=== PATIENT | female | born 1940 | race Caucasian/White ===

== ENCOUNTER 2018-12-12 02:44 | Emergency (ER) | payer MEDICARE, OTHER ==
[~2018-12-12] VITALS: Ht 167.6 cm; Wt 99.8 kg
[2018-12-12] MEDS ORDERED: cloNIDine HCL 0.1 MG TAB PO ONE (03:45)
[2018-12-12] MEDS ORDERED: ONDANSETRON HCL 4 MG/2 ML VIAL IV ONE (04:30)
[2018-12-12] MEDS ORDERED: MORPHINE SULFATE 4 MG/ML SYR/VIAL IV ONE (04:30)
[2018-12-12 04:37] LABS: Basophils # (auto) 0.1 uL; Basophils % (auto) 0.9 % (0.0-2.0); Eosinophils # (auto) 0.1 uL; Hematocrit 41.1 % (36.0-46.0); Hemoglobin 13.3 g/dL (12.2-16.2); Lymphocytes # (auto) 2.2 uL; Lymphocytes % (auto) 22.5 % (10.0-50.0); Mean Corpuscular Hemoglobin 28.4 pg (28.0-32.0); Mean Corpuscular Hgb Conc. 32.3 g/dL (32.0-36.0); Mean Corpuscular Volume 87.9 fL (80.0-100.0); Monocytes # (auto) 0.8 uL; Monocytes % (auto) 7.7 % (0.0-12.0); Neutrophils # (auto) 6.7 uL; Neutrophils % (auto) 67.9 % (37.0-80.0); Platelet Count (auto) 266 10^3/uL (140-450); Red Blood Cells 4.68 10^6/uL (4.0-5.20); White Blood Cell 9.9 10^3/uL (4.4-10.8)
[2018-12-12 05:00] LABS: Albumin 4.2 g/dL (3.4-5.0); BUN/Creatinine Ratio 14.7; Calcium 10.2 mg/dL (8.5-10.1); Potassium 4.1 mmol/L (3.5-5.1)
[2018-12-12 05:04] LABS: Bilirubin, Total 0.6 mg/dL (0.2-1.0); Total Protein 8.1 g/dL (6.4-8.2)
[2018-12-12] MEDS ORDERED: IOHEXOL 300 MG/ML 100ML BOTTLE IJ ONE (07:01)
[2018-12-12 10:00] VITALS: BP 143/74
[2018-12-12 10:23] LABS: Urine Bacteria FEW /hpf (None Seen); Urine Blood Negative /uL (Negative); Urine Specific Gravity 1.039 (1.001-1.035); Urine WBC 8 /hpf (0 - 5)
== END 2018-12-12 11:02 | disposition home or self-care (01) ==
LOC: ER 02:47
DX: S76.012A Strain of muscle, fascia and tendon of left hip, initial encounter (principal); S80.02XA Contusion of left knee, initial encounter; R10.9 Unspecified abdominal pain; R11.2 Nausea with vomiting, unspecified; E11.9 Type 2 diabetes mellitus without complications; I10 Essential (primary) hypertension; Z90.49 Acquired absence of other specified parts of digestive tract; Z90.710 Acquired absence of both cervix and uterus; W01.0XXA Fall on same level from slipping, tripping and stumbling without subsequent striking against object, initial encounter; Y93.89 Activity, other specified; Y99.8 Other external cause status; Y92.89 Other specified places as the place of occurrence of the external cause
CPT/HCPCS: 36415; 73070; 73502; 73560; 73610; 74177; 80053; 81001; 82150; 83605; 83690; 85025; 93005; 96374; 96375; 99284; J2270; J2405; J7030; Q9967

== ENCOUNTER 2018-12-12 19:13 | Emergency (ER) | payer MEDICARE ==
[~2018-12-12] VITALS: Ht 167.6 cm; Wt 99.8 kg
[2018-12-12 19:27] VITALS: BP 190/77
[2018-12-12] MEDS ORDERED: cloNIDine HCL 0.1 MG TAB ONE (19:35)
[2018-12-12] MEDS ORDERED: cloNIDine HCL 0.1 MG TAB PO ONE (19:45)
== END 2018-12-12 20:40 | disposition left against medical advice (07) ==
LOC: ER 19:13
DX: R10.84 Generalized abdominal pain (principal); R11.2 Nausea with vomiting, unspecified; Z53.21 Procedure and treatment not carried out due to patient leaving prior to being seen by health care provider
CPT/HCPCS: 93005

== ENCOUNTER 2023-01-30 03:07 | Inpatient (IN) | payer MEDICARE, MEDICAID ==
[~2023-01-30] VITALS: Ht 167.6 cm; Wt 80.5 kg
[2023-01-30 04:00] VITALS: PULSE 98; RESP 22; O2SAT 95
[2023-01-30] MEDS ORDERED: SODIUM CHLORIDE 0.9% 1,000 ML IV ONE (04:00)
[2023-01-30] MEDS ORDERED: IPRATROPIUM BROM 0.5 MG/2.5ML INH SOL NEB ONE (04:15)
[2023-01-30] MEDS ORDERED: ALBUTEROL MEDNEB 2.5 mg/3ml NEB NEB ONE (04:15)
[2023-01-30] MEDS ORDERED: SODIUM CHLORIDE 0.9% 1,700 ML IV ONE (04:30)
[2023-01-30] MEDS ORDERED: ALBUMIN 25% 100 ML IV ONE (04:30)
[2023-01-30 04:31] LABS: Basophils # (auto) 0 10 ^3/uL (0-0.2); Eosinophils # (auto) 0 10 ^3/uL (0-0.8); Eosinophils % (auto) 0.5 % (0.0-7.0); Hematocrit 33.6 % (36.0-46.0); Hemoglobin 11.1 g/dL (12.2-16.2); Lymphocytes # (auto) 0.2 10 ^3/uL (0.4-5.4); Mean Corpuscular Hemoglobin 29.8 pg (28.0-32.0); Mean Corpuscular Hgb Conc. 33.1 g/dL (32.0-36.0); Mean Corpuscular Volume 90.3 fL (80.0-100.0); Monocytes # (auto) 0.5 10 ^3/uL (0-1.3); Neutrophils # (auto) 5.8 10 ^3/uL (1.6-8.6); Neutrophils % (auto) 89.5 % (37.0-80.0); Nucleated Red Blood Cells % 0.2 %; Red Blood Cells 3.72 10^6/uL (4.0-5.20); Red Cell Distribution Width 14.5 % (11.8-14.3); White Blood Cell 6.5 10^3/uL (4.4-10.8)
[2023-01-30 04:40] LABS: INR 1.13 (0.9-1.15); Partial Thromboplastin Time 30.3 SEC (24.5-34.5); Prothrombin Time 11.8 sec (9.3-11.8)
[2023-01-30 04:51] LABS: Alanine Aminotransferase 22 U/L (7-40); Albumin 3.6 g/dL (3.2-4.8); Alkaline Phosphatase 47 U/L (46-116); Anion Gap 6 (5-15); Aspartate Aminotransferase 25 U/L (13-40); BUN/Creatinine Ratio 21.7 (10.0-20.0); Bilirubin, Total 0.3 mg/dL (0.2-1.0); Blood Urea Nitrogen 33 mg/dL (9-23); Carbon Dioxide 23 mmol/L (20-30); Chloride 111 mmol/L (98-107); Glucose 120 mg/dL (74-106); Magnesium 1.4 mg/dL (1.6-2.6); Potassium 4.3 mmol/L (3.5-5.1); Sodium 140 mmol/L (136-145); Total Protein 5.8 g/dL (5.7-8.2)
[2023-01-30 05:34] LABS: COVID19 ANTIGEN SOFIA FIA NEGATIVE (NEGATIVE)
[2023-01-30 07:20] VITALS: O2SAT 96
[2023-01-30] MEDS ORDERED: NITROGLYCERIN 0.4 MG SL TAB SL ONE (10:00)
[2023-01-30 10:07] LABS: Basophils # (auto) 0 10 ^3/uL (0-0.2); Basophils % (auto) 0.1 % (0.0-2.0); Eosinophils # (auto) 0.1 10 ^3/uL (0-0.8); Eosinophils % (auto) 1.1 % (0.0-7.0); Hematocrit 31.6 % (36.0-46.0); Hemoglobin 10.2 g/dL (12.2-16.2); Lymphocytes # (auto) 0.3 10 ^3/uL (0.4-5.4); Lymphocytes % (auto) 5.1 % (10.0-50.0); Mean Corpuscular Hemoglobin 29.1 pg (28.0-32.0); Mean Corpuscular Hgb Conc. 32.3 g/dL (32.0-36.0); Mean Corpuscular Volume 90.1 fL (80.0-100.0); Monocytes # (auto) 0.5 10 ^3/uL (0-1.3); Neutrophils # (auto) 5.4 10 ^3/uL (1.6-8.6); Neutrophils % (auto) 85.7 % (37.0-80.0); Nucleated Red Blood Cells % 0.1 %; Red Cell Distribution Width 14.3 % (11.8-14.3); White Blood Cell 6.2 10^3/uL (4.4-10.8)
[2023-01-30 10:10] LABS: Alanine Aminotransferase 21 U/L (7-40); Albumin 3.7 g/dL (3.2-4.8); Alkaline Phosphatase 43 U/L (46-116); Anion Gap 7 (5-15); Aspartate Aminotransferase 22 U/L (13-40); BUN/Creatinine Ratio 23.9 (10.0-20.0); Blood Urea Nitrogen 38 mg/dL (9-23); Calcium 9.3 mg/dL (8.5-10.1); Carbon Dioxide 23 mmol/L (20-30); Chloride 111 mmol/L (98-107); Glucose 99 mg/dL (74-106); Potassium 4.7 mmol/L (3.5-5.1); Sodium 141 mmol/L (136-145)
[2023-01-30 10:11] LABS: Bilirubin, Total 0.3 mg/dL (0.2-1.0); Total Protein 5.6 g/dL (5.7-8.2)
[2023-01-30 10:20] LABS: INR 1.14 (0.9-1.15); Partial Thromboplastin Time 31.6 SEC (24.5-34.5); Prothrombin Time 11.9 sec (9.3-11.8)
[2023-01-30 11:31] LABS: Rapid Influenza A Negative (Negative); Rapid Influenza B Negative (Negative)
[2023-01-30] MEDS ORDERED: PIPERACILLIN-TAZOB 3.375GM 100 ML IV ONE (13:00)
[2023-01-30] MEDS ORDERED: ATOR40TA52 PO (13:23)
[2023-01-30] MEDS ORDERED: METF-370 PO (13:23)
[2023-01-30] MEDS ORDERED: MET500T PO (13:23)
[2023-01-30] MEDS ORDERED: SUCR1TAB PO (13:23)
[2023-01-30] MEDS ORDERED: PATI1POW PO (13:23)
[2023-01-30] MEDS ORDERED: ALPR0.255 PO (13:23)
[2023-01-30] MEDS ORDERED: CITA-77 PO (13:23)
[2023-01-30] MEDS ORDERED: ALLO100T PO (13:23)
[2023-01-30] MEDS ORDERED: GABA-1250 PO (13:23)
[2023-01-30] MEDS ORDERED: ALPR0.5T8 PO (13:23)
[2023-01-30] MEDS ORDERED: ATEN100T PO (13:23)
[2023-01-30] MEDS ORDERED: LISI40TA16 PO (13:23)
[2023-01-30] MEDS ORDERED: DEXTROSE (50%) 50ML SYRG IV PRN (13:30)
[2023-01-30] MEDS ORDERED: ALBUTEROL MEDNEB 2.5 mg/3ml NEB NEB PRN (13:30)
[2023-01-30] MEDS: AZITHROMYCIN 500MG/ 250ML 250 ML IV ONE (13:30)
[2023-01-30] MEDS ORDERED: MORPHINE SULFATE INJ 2 MG/ml SYRG IV PRN (13:30)
[2023-01-30] MEDS ORDERED: NITROGLYCERIN 0.4 MG SL TAB SL PRN (13:30)
[2023-01-30] MEDS ORDERED: cefTRIAXone 1GM/50ML D5W 50 ML IV ONE (13:30)
[2023-01-30] MEDS: SODIUM CHLORIDE 0.9% 1,000 ML IV SCH (13:39)
[2023-01-30] MEDS: IPRATROPIUM BROM 0.5 MG/2.5ML INH SOL NEB SCH ×3 (14:00→22:00)
[2023-01-30] MEDS: ALBUTEROL MEDNEB 2.5 mg/3ml NEB NEB SCH ×3 (14:00→22:00)
[2023-01-30] MEDS: ONDANSETRON HCL 4 MG/2 ML VIAL IV PRN (14:21)
[2023-01-30] MEDS: GABAPENTIN 300 MG CAP PO SCH ×2 (14:21→23:21)
[2023-01-30] MEDS ORDERED: ONDANSETRON HCL 4 MG/2 ML VIAL ONE (14:21)
[2023-01-30 15:01] LABS: Urine Bacteria FEW /hpf (None Seen); Urine Blood Negative /uL (Negative); Urine Clarity HAZY (Clear); Urine Color Yellow (Yellow); Urine Hyaline Cast FEW /lpf (0 - 2); Urine Mucus FEW (None Seen); Urine Protein, UAD 1+ (Negative); Urine Specific Gravity 1.016 (1.001-1.035); Urine Urobilinogen Normal (Negative); Urine WBC 152 /hpf (0 - 5); Urine WBC Clumps PRESENT /hpf (None Seen); Urine pH 5.5 (5.0-8.0)
[2023-01-30] MEDS: InsuLIN REG 1unit/0.01ml Soln (100units/ml) SC SCH ×2 (17:00→22:00)
[2023-01-30] MEDS: ACCU-CHEK COMFORT CURVE STRIP VI SCH ×2 (17:22→22:00)
[2023-01-30 18:05] VITALS: PULSE 66; RESP 18; O2SAT 100
[2023-01-30] MEDS: SUCRALFATE 1 GM TAB PO SCH ×2 (18:19→23:21)
[2023-01-30 18:28] VITALS: BP 95/57; PULSE 66; RESP 18; TEMP 102; O2SAT 100
[2023-01-30 20:00] VITALS: PULSE 76; RESP 18; O2SAT 98
[2023-01-31] VITALS (9 sets, daily range): BP systolic 99–142; BP diastolic 46–78; PULSE 62–140; RESP 16–20; TEMP 97.6–98.6; O2SAT 94–99
[2023-01-31] MEDS: IPRATROPIUM BROM 0.5 MG/2.5ML INH SOL NEB SCH ×6 (02:00→22:00)
[2023-01-31] MEDS: ALBUTEROL MEDNEB 2.5 mg/3ml NEB NEB SCH ×4 (02:00→14:29)
[2023-01-31] MEDS: SODIUM CHLORIDE 0.9% 1,000 ML IV SCH ×2 (02:56→16:31)
[2023-01-31] MEDS ORDERED: ALBUMIN 5% 250 ML IV ONE (05:00)
[2023-01-31] MEDS: SUCRALFATE 1 GM TAB PO SCH ×4 (05:36→22:25)
[2023-01-31] MEDS: GABAPENTIN 300 MG CAP PO SCH ×3 (05:36→22:26)
[2023-01-31 06:15] LABS: Alanine Aminotransferase 17 U/L (7-40); Albumin 3.4 g/dL (3.2-4.8); Alkaline Phosphatase 37 U/L (46-116); Anion Gap 5 (5-15); Aspartate Aminotransferase 21 U/L (13-40); BUN/Creatinine Ratio 18.1 (10.0-20.0); Calcium 8.3 mg/dL (8.7-10.4); Carbon Dioxide 22 mmol/L (20-30); Chloride 115 mmol/L (98-107); Glucose 84 mg/dL (74-106); Potassium 4.5 mmol/L (3.5-5.1); Sodium 142 mmol/L (136-145)
[2023-01-31 06:16] LABS: Bilirubin, Total 0.2 mg/dL (0.2-1.0); Total Protein 5.4 g/dL (5.7-8.2)
[2023-01-31 06:33] LABS: Blood Urea Nitrogen 26 mg/dL (9-23)
[2023-01-31 06:49] LABS: Basophils # (auto) 0 10 ^3/uL (0-0.2); Basophils % (auto) 0.1 % (0.0-2.0); Eosinophils # (auto) 0.1 10 ^3/uL (0-0.8); Eosinophils % (auto) 1.4 % (0.0-7.0); Hematocrit 30.5 % (36.0-46.0); Hemoglobin 10.1 g/dL (12.2-16.2); Lymphocytes # (auto) 1.9 10 ^3/uL (0.4-5.4); Lymphocytes % (auto) 34.7 % (10.0-50.0); Mean Corpuscular Hemoglobin 30.2 pg (28.0-32.0); Mean Corpuscular Hgb Conc. 33.1 g/dL (32.0-36.0); Mean Corpuscular Volume 91.5 fL (80.0-100.0); Monocytes # (auto) 0.5 10 ^3/uL (0-1.3); Monocytes % (auto) 10.2 % (0.0-12.0); Neutrophils # (auto) 2.9 10 ^3/uL (1.6-8.6); Neutrophils % (auto) 53.6 % (37.0-80.0); Nucleated Red Blood Cells % 0.1 %; Red Blood Cells 3.33 10^6/uL (4.0-5.20); White Blood Cell 5.3 10^3/uL (4.4-10.8)
[2023-01-31] MEDS: ACCU-CHEK COMFORT CURVE STRIP VI SCH ×4 (06:51→22:00)
[2023-01-31] MEDS: InsuLIN REG 1unit/0.01ml Soln (100units/ml) SC SCH ×4 (06:51→22:00)
[2023-01-31] MEDS: ALLOPURINOL 100 MG TAB PO SCH (09:43)
[2023-01-31] MEDS: ATORVASTATIN 20 MG TAB PO SCH (09:43)
[2023-01-31] MEDS: cefTRIAXone 1GM/50ML D5W 50 ML IV SCH (09:43)
[2023-01-31] MEDS: CITALOPRAM HYDROBR 20 MG TAB PO SCH (09:43)
[2023-01-31] MEDS: PATIROMER SORBITEX CALCIUM PO SCH (10:00)
[2023-01-31] MEDS: AZITHROMYCIN 500MG/ 250ML 250 ML IV SCH (11:04)
[2023-01-31] MEDS: ACETAMINOPHEN 325 MG TAB PO PRN ×2 (12:35→23:14)
[2023-01-31] MEDS: ENOXAPARIN SOD 30 MG/0.3 ML SYRINGE SC SCH (13:48)
[2023-01-31] MEDS: ALBUTEROL SULF 2.5 MG/0.5ML(0.5%) NEB SOLN NEB SCH ×2 (18:00→22:00)
[2023-01-31] MEDS ORDERED: ALBUTEROL SULF 2.5 MG/0.5ML(0.5%) NEB SOLN NEB PRN (18:00)
[2023-02-01] VITALS (8 sets, daily range): BP systolic 130–155; BP diastolic 52–86; PULSE 63–87; RESP 17–19; TEMP 97.4–98.3; O2SAT 91–100
[2023-02-01] MEDS: ALBUTEROL SULF 2.5 MG/0.5ML(0.5%) NEB SOLN NEB SCH ×3 (02:00→10:00)
[2023-02-01] MEDS: IPRATROPIUM BROM 0.5 MG/2.5ML INH SOL NEB SCH ×3 (02:00→10:00)
[2023-02-01] MEDS: SODIUM CHLORIDE 0.9% 1,000 ML IV SCH (05:35)
[2023-02-01] MEDS: SUCRALFATE 1 GM TAB PO SCH ×4 (06:09→20:44)
[2023-02-01] MEDS: GABAPENTIN 300 MG CAP PO SCH ×3 (06:09→20:44)
[2023-02-01] MEDS: InsuLIN REG 1unit/0.01ml Soln (100units/ml) SC SCH ×4 (06:14→20:45)
[2023-02-01] MEDS: ACCU-CHEK COMFORT CURVE STRIP VI SCH ×4 (06:15→20:45)
[2023-02-01 07:02] LABS: Basophils # (auto) 0 10 ^3/uL (0-0.2); Basophils % (auto) 0.2 % (0.0-2.0); Eosinophils # (auto) 0.1 10 ^3/uL (0-0.8); Hematocrit 33.3 % (36.0-46.0); Hemoglobin 10.9 g/dL (12.2-16.2); Lymphocytes # (auto) 1.2 10 ^3/uL (0.4-5.4); Lymphocytes % (auto) 19.5 % (10.0-50.0); Mean Corpuscular Hemoglobin 29.5 pg (28.0-32.0); Mean Corpuscular Hgb Conc. 32.8 g/dL (32.0-36.0); Mean Corpuscular Volume 89.9 fL (80.0-100.0); Monocytes # (auto) 0.7 10 ^3/uL (0-1.3); Monocytes % (auto) 11.2 % (0.0-12.0); Neutrophils # (auto) 4.3 10 ^3/uL (1.6-8.6); Neutrophils % (auto) 68.1 % (37.0-80.0); Nucleated Red Blood Cells % 0.1 %; Red Blood Cells 3.71 10^6/uL (4.0-5.20); Red Cell Distribution Width 14.3 % (11.8-14.3); White Blood Cell 6.3 10^3/uL (4.4-10.8)
[2023-02-01 07:12] LABS: Chloride 114 mmol/L (98-107); Potassium 4.3 mmol/L (3.5-5.1); Sodium 141 mmol/L (136-145)
[2023-02-01 07:13] LABS: Anion Gap 7 (5-15); Calcium 9.4 mg/dL (8.5-10.1); Carbon Dioxide 20 mmol/L (20-30)
[2023-02-01 07:18] LABS: BUN/Creatinine Ratio 16.1 (10.0-20.0); Blood Urea Nitrogen 20 mg/dL (9-23); Glucose 104 mg/dL (74-106)
[2023-02-01] MEDS: PATIROMER SORBITEX CALCIUM PO SCH (09:04)
[2023-02-01] MEDS: ATORVASTATIN 20 MG TAB PO SCH (09:06)
[2023-02-01] MEDS: CITALOPRAM HYDROBR 20 MG TAB PO SCH (09:06)
[2023-02-01] MEDS: ALLOPURINOL 100 MG TAB PO SCH (09:06)
[2023-02-01] MEDS: cefTRIAXone 1GM/50ML D5W 50 ML IV SCH (09:07)
[2023-02-01] MEDS: ENOXAPARIN SOD 30 MG/0.3 ML SYRINGE SC SCH (09:07)
[2023-02-01] MEDS: AZITHROMYCIN 500MG/ 250ML 250 ML IV SCH (09:07)
[2023-02-01] MEDS: ACETAMINOPHEN 325 MG TAB PO PRN (20:41)
[2023-02-02] VITALS (10 sets, daily range): BP systolic 126–163; BP diastolic 63–80; PULSE 63–81; RESP 16–20; TEMP 98.1–98.8; O2SAT 97–100
[2023-02-02] MEDS: GABAPENTIN 300 MG CAP PO SCH ×3 (05:54→21:31)
[2023-02-02] MEDS: SUCRALFATE 1 GM TAB PO SCH ×4 (05:54→21:31)
[2023-02-02] MEDS: ACCU-CHEK COMFORT CURVE STRIP VI SCH (05:57)
[2023-02-02] MEDS: InsuLIN REG 1unit/0.01ml Soln (100units/ml) SC SCH (05:57)
[2023-02-02] MEDS: PATIROMER SORBITEX CALCIUM PO SCH (09:37)
[2023-02-02] MEDS: ALLOPURINOL 100 MG TAB PO SCH (09:53)
[2023-02-02] MEDS: CITALOPRAM HYDROBR 20 MG TAB PO SCH (09:53)
[2023-02-02] MEDS: ATORVASTATIN 20 MG TAB PO SCH (09:53)
[2023-02-02] MEDS: AZITHROMYCIN 250 MG TAB PO SCH (09:54)
[2023-02-02] MEDS: ENOXAPARIN SOD 40 MG/0.4 ML SYRINGE SC SCH (10:00)
[2023-02-02] MEDS: cefTRIAXone 1GM/50ML D5W 50 ML IV SCH (10:00)
[2023-02-02] MEDS: ACETAMINOPHEN 325 MG TAB PO PRN ×3 (10:05→22:34)
[2023-02-02 13:49] LABS: Chloride 113 mmol/L (98-107); Sodium 143 mmol/L (136-145)
[2023-02-02 13:50] LABS: Anion Gap 8 (5-15); Calcium 9.3 mg/dL (8.5-10.1); Carbon Dioxide 22 mmol/L (20-30)
[2023-02-02 13:55] LABS: BUN/Creatinine Ratio 13.4 (10.0-20.0); Blood Urea Nitrogen 15 mg/dL (9-23); Glucose 111 mg/dL (74-106)
[2023-02-03] VITALS (8 sets, daily range): BP systolic 135–162; BP diastolic 69–76; PULSE 16–77; RESP 17–20; TEMP 97.6–98.7; O2SAT 93–98
[2023-02-03] MEDS: SUCRALFATE 1 GM TAB PO SCH ×4 (06:35→22:00)
[2023-02-03] MEDS: GABAPENTIN 300 MG CAP PO SCH ×3 (06:35→22:00)
[2023-02-03] MEDS: ALLOPURINOL 100 MG TAB PO SCH (08:48)
[2023-02-03] MEDS: ATORVASTATIN 20 MG TAB PO SCH (08:48)
[2023-02-03] MEDS: CITALOPRAM HYDROBR 20 MG TAB PO SCH (08:48)
[2023-02-03] MEDS: cefTRIAXone 1GM/50ML D5W 50 ML IV SCH (08:48)
[2023-02-03] MEDS: ENOXAPARIN SOD 40 MG/0.4 ML SYRINGE SC SCH (08:48)
[2023-02-03] MEDS: AZITHROMYCIN 250 MG TAB PO SCH (08:49)
[2023-02-03] MEDS: PATIROMER SORBITEX CALCIUM PO SCH (10:00)
[2023-02-03] MEDS ORDERED: AZIT-74 PO (12:26)
[2023-02-03] MEDS: ALPRAZolam 0.5 MG TAB PO SCH (22:00)
[2023-02-04 05:00] VITALS: BP 141/65; PULSE 78; RESP 19; TEMP 98.6; O2SAT 93
[2023-02-04] MEDS: SUCRALFATE 1 GM TAB PO SCH ×3 (06:00→17:52)
[2023-02-04] MEDS: GABAPENTIN 300 MG CAP PO SCH ×2 (06:00→15:30)
[2023-02-04] MEDS: ONDANSETRON HCL 4 MG/2 ML VIAL IV PRN (06:19)
[2023-02-04 08:00] VITALS: PULSE 77; PULSE 78; RESP 18
[2023-02-04 09:00] VITALS: BP 154/76; PULSE 83; RESP 18; TEMP 98.8; O2SAT 91
[2023-02-04] MEDS: cefTRIAXone 1GM/50ML D5W 50 ML IV SCH (09:00)
[2023-02-04] MEDS: PATIROMER SORBITEX CALCIUM PO SCH (09:48)
[2023-02-04 10:00] VITALS: O2SAT 96; O2SAT 97
[2023-02-04] MEDS: ALLOPURINOL 100 MG TAB PO SCH (10:00)
[2023-02-04] MEDS: AZITHROMYCIN 250 MG TAB PO SCH (10:00)
[2023-02-04] MEDS: ALPRAZolam 0.5 MG TAB PO SCH (10:00)
[2023-02-04] MEDS: ENOXAPARIN SOD 40 MG/0.4 ML SYRINGE SC SCH (10:00)
[2023-02-04] MEDS: CITALOPRAM HYDROBR 20 MG TAB PO SCH (10:00)
[2023-02-04] MEDS: ATORVASTATIN 20 MG TAB PO SCH (10:00)
[2023-02-04 13:00] VITALS: BP 151/72; PULSE 76; RESP 18; TEMP 98.3; O2SAT 96
[2023-02-04 16:51] VITALS: BP 161/80; PULSE 66; RESP 19; TEMP 97.9; O2SAT 96
== END 2023-02-04 18:25 | DRG 193 ==
LOC: EDBD 03:07 → ER 03:07 → TELE 13:21 → TELE-WESTW 01-31 09:10
PROVIDERS: ADMIT Nurse Practitioner Family; ATTEND Internal Medicine
DX: J18.9 Pneumonia, unspecified organism (principal); J96.01 Acute respiratory failure with hypoxia; N17.0 Acute kidney failure with tubular necrosis; N39.0 Urinary tract infection, site not specified; E11.9 Type 2 diabetes mellitus without complications; R07.81 Pleurodynia; W01.0XXA Fall on same level from slipping, tripping and stumbling without subsequent striking against object, initial encounter; Z20.822 Contact with and (suspected) exposure to COVID-19; Z90.710 Acquired absence of both cervix and uterus; Z90.49 Acquired absence of other specified parts of digestive tract; Y93.89 Activity, other specified; Y92.129 Unspecified place in nursing home as the place of occurrence of the external cause; Y99.9 Unspecified external cause status
CPT/HCPCS: 36415; 36600; 70450; 71045; 71250; 72125; 74176; 78582; 80048; 80053; 81001; 82805; 82962; 83036; 83605; 83735; 83880; 83930; 84443; 84484; 85025; 85379; 85610; 85730; 87040; 87081; 87426; 87804; 93005; 94640; 96365; 96367; 97110; 97116; 97163; 97530; G0378; J0696; J2405; J2543; P9047